=== PATIENT | female | born 1930 | race Caucasian/White ===

== ENCOUNTER 2017-05-31 20:36 | Emergency (ER) | payer OTHER ==
[~2017-05-31] VITALS: Ht 162.6 cm; Wt 67.1 kg
[2017-05-31] MEDS ORDERED: PLAVIX75 MG (20:59)
[2017-05-31] MEDS ORDERED: ZOLOFT50 MG (20:59)
[2017-05-31] MEDS ORDERED: ASA81 MG ×2 (20:59→21:01)
[2017-05-31] MEDS ORDERED: FAMCICLOVIR500 MG (21:00)
[2017-05-31] MEDS ORDERED: METFORMIN HCL500 MG (21:01)
[2017-05-31] MEDS ORDERED: CARVEDILOL6.25 MG (21:01)
[2017-05-31] MEDS ORDERED: COZAAR25 MG (21:01)
[2017-06-01] MEDS ORDERED: APETIGEN-PLUS1 EACH PO (06:27)
[2017-06-01] MEDS ORDERED: BACTRIM DS TAB1 EACH PO (06:27)
[2017-06-04] MEDS ORDERED: ACIDOPHILUS1 EAC3 PO (14:27)
[2017-06-04] MEDS ORDERED: ZANTAC150 MG PO (14:27)
== END 2017-06-01 07:02 ==
LOC: ER 20:36
DX: S10.93XA Contusion of unspecified part of neck, initial encounter (principal); R53.1 Weakness; N39.0 Urinary tract infection, site not specified; W18.39XA Other fall on same level, initial encounter; Y93.E8 Activity, other personal hygiene; Y92.012 Bathroom of single-family (private) house as the place of occurrence of the external cause

== ENCOUNTER 2017-06-12 14:43 | Inpatient (IN) | payer OTHER ==
[~2017-06-12] VITALS: Ht 165.1 cm; Wt 56.7 kg
[~2017-06-12 14:43] MED LIST: ACIDOPHILUS1 EAC3 PO; APETIGEN-PLUS1 EACH PO; ASA81 MG; BACTRIM DS TAB1 EACH PO; CARVEDILOL6.25 MG; COZAAR25 MG; FAMCICLOVIR500 MG; METFORMIN HCL500 MG; PLAVIX75 MG; ZANTAC150 MG PO; ZOLOFT50 MG
== END 2017-06-17 12:05 | disposition home or self-care (01) | DRG 417 ==
LOC: ER 14:43 → SEC-K 22:12 → SURH 22:12
PROVIDERS: Surgery
PROC: BF37ZZZ Magnetic Resonance Imaging (MRI) of Pancreas (ICD-10-PCS; 2017-06-12)
PROC: BW40ZZZ Ultrasonography of Abdomen (ICD-10-PCS; 2017-06-12)
PROC: B246ZZZ Ultrasonography of Right and Left Heart (ICD-10-PCS; 2017-06-13)
PROC: 0FT44ZZ Resection of Gallbladder, Percutaneous Endoscopic Approach (ICD-10-PCS; principal; 2017-06-14 07:00)
PROC: 0WQF4ZZ Repair Abdominal Wall, Percutaneous Endoscopic Approach (ICD-10-PCS; 2017-06-14 07:00)
DX: K80.00 Calculus of gallbladder with acute cholecystitis without obstruction (principal); K85.10 Biliary acute pancreatitis without necrosis or infection; K42.0 Umbilical hernia with obstruction, without gangrene; E11.9 Type 2 diabetes mellitus without complications; I10 Essential (primary) hypertension

== ENCOUNTER 2017-08-17 09:10 | Emergency (ER) | payer OTHER ==
[~2017-08-17] VITALS: Ht 154.9 cm; Wt 57.2 kg
== END 2017-08-17 12:55 | disposition home or self-care (01) ==
LOC: ER 09:10
DX: S00.83XA Contusion of other part of head, initial encounter (principal); S60.222A Contusion of left hand, initial encounter; S20.212A Contusion of left front wall of thorax, initial encounter; W01.198A Fall on same level from slipping, tripping and stumbling with subsequent striking against other object, initial encounter; Y93.01 Activity, walking, marching and hiking; Y92.091 Bathroom in other non-institutional residence as the place of occurrence of the external cause; Y99.8 Other external cause status